=== PATIENT | male | born 1990 | race Caucasian/White ===

== ENCOUNTER 2016-08-31 16:50 | Emergency (ER) | payer SELFPAY ==
[~2016-08-31] VITALS: Ht 180.3 cm; Wt 81.6 kg
--- NOTE | 2016-08-31 17:38 | ED EENT ---
History of Present Illness General Chief Complaint: Eye Problems Stated Complaint: R EYE SWELLING/PAIN Nursing Triage Note: PT STATES EYELID SWELLING SINCE HE WOKE UP YESTERDAY. STATES IT IS HARD TO OPEN HIS EYE. Source: patient, family, spouse Exam Limitations: no limitations History of Present Illness Time seen by provider: 17:38 Initial Comments 26-year-old male patient presents to the emergency department with complaints of right eyelid swelling beginning yesterday morning when he awoke. Reports pain continues. Swelling is slightly improved today. Spouse reports patient has had some yellowish green drainage from the eye and matting this a.m. Timing/Duration: abrupt Location: eye (R) Prearrival Treatment: flushing eyes Modifying Factors: Worse With Other (worse with palpation) Allergies and Home Medications Allergies Coded Allergies: coconut (Verified Allergy, Unknown, 08/31/16) Home Medications Naproxen 500 Mg Tablet, 500 MG PO BID PRN for PAIN, #20 Ref 0 Prescribed by: ANU MOREJON on 08/31/161800 Sulfamethoxazole/Trimethoprim 1 Each Tablet, 1 EACH PO BID, #14 Ref 0 Prescribed by: ANU MOREJON on 08/31/161800 Review of Systems Constitutional: No dizziness, No fever, No malaise Eyes: See HPI, Denies Blurred Vision, Drainage, Denies Inflammation, Pain Ears: No Symptoms Reported Nose: denies congestion, denies pain, denies bloody discharge, denies clear discharge, denies purulent discharge, denies serosanguinous discharge Mouth: no symptoms reported Throat: no symptoms reported Respiratory: no symptoms reported Cardiovascular: no symptoms reported Musculoskeletal: No neck pain Skin: no symptoms reported Neurological: Headache, Denies Numbness, Denies Paresthesia, Denies Tingling, Denies Weakness All Other Systems Reviewed Negative Unless Noted: Yes (Negative excepted noted.) Past Bwgmigc-Cmejok-Qoikyi Hx Patient Social History Alcohol Use: Denies Use Recreational Drug Use: No (HX IV DRUG USE) Smoking Status: Current Everyday Smoker Recent Foreign Travel: No Contact w/Someone Who Travel: No Recent Infectious Disease Expo: No Recent Hopitalizations: No Seasonal Allergies Seasonal Allergies: No Surgeries HX Surgeries: Yes (KNIFE REMOVED FROM L HIP/BONE GRAFT. PLATE IN L WRIST) Surgeries: Orthopedic Respiratory Hx Respiratory Disorders: No Cardiovascular Hx Cardiac Disorders: No Neurological Hx Neurological Disorders: No Reproductive System Hx Reproductive Disorders: No Gastrointestinal Hx Gastrointestinal Disorders: Yes (HEP C) Gastrointestinal Disorders: Hepatitis Musculoskeletal Hx Musculoskeletal Disorders: Yes Musculoskeletal Disorders: Degenerate Disk Disease, Back Injury Endocrine Hx Endocrine Disorders: No HEENT HX ENT Disorders: No Cancer Hx Cancer: No Psychosocial Hx Psychiatric Problems: Yes Behavioral Health Disorders: PTSD, Bipolar Integumentary HX Skin/Integumentary Disorder: No Blood Transfusions Hx Blood Disorders: No Reviewed Nursing Assessment Reviewed/Agree w Nursing PMH: Yes Family Medical History Significant Family History: No Pertinent Family Hx Physical Exam Vital Signs Vital Sign - Last 12Hours 08/31/16 17:03 Temp 97.6 Pulse 114 Resp 18 B/P (MAP) 136/58 Pulse Ox 95 Eyes: right eye other (swelling of the right upper lid without evidence of erythema or warmth. Slight greenish yellow drainage noted from the eye.), right eye stye (right upper lid), left eye normal inspection, bilateral eye EOMI , bilateral eye PERRL Ears: bilateral ear TM normal, bilateral ear auricle normal, bilateral ear canal normal Nose: normal inspection Mouth/Throat: normal mouth inspection, pharynx normal Neck: supple, normal inspection, lymphadenopathy (R) (mild lymphadenopathy noted in the right anterior cervical lymph nodes), No lymphadenopathy (L) Cardiovascular: regular rate, rhythm, no murmur Respiratory: lungs clear, normal breath sounds, no respiratory distress Neurologic/Psychiatric: alert, normal mood/affect, oriented x 3 Skin: normal color, warm/dry Progress/Results/Core Measures Results/Orders My Orders Orders - ANU MOREJON Rx-Tramadol Hcl (Rx-Ultram) (08/31/16 17:55) Rx-Gentamicin Ophth Soln (Rx-Gentamicin (08/31/16 17:55) Rx-Trimeth/Sulfameth Ds Tab (Rx-Bactrim/ (08/31/16 17:55) Vital Signs/I&O Vital Sign - Last 12Hours 08/31/16 17:03 Temp 97.6 Pulse 114 Resp 18 B/P (MAP) 136/58 Pulse Ox 95 Blood Pressure Mean: 84 Departure Communication Progress Notes Patient seen and evaluated. Plan for discharge to home with and a mycin, tramadol, and Bactrim to go Packs Impression Impression: Primary Impression: Hordeolum internum of right upper eyelid Disposition: 01 HOME, SELF-CARE Condition: Improved Departure-Patient Inst. Decision time for Depature: 17:59 Referrals: NO,LOCAL PHYSICIAN (PCP) Primary Care Physician Patient Instructions: Adriano (Ignacio) Add. Discharge Instructions: All discharge instructions reviewed with patient and/or family. Voiced understanding. Medications as instructed. Tylenol extra strength over-the- counter as directed for pain. Warm compresses. Baby shampoo to cleanse the eye twice daily. Use a clean washcloth with each cleaning. Follow-up with your family practitioner of choice for recheck and to establish care. Return to the emergency department for worsened symptoms or any other concerns. Scripts Naproxen (Naprosyn) 500 Mg Tablet 500 MG PO BID Y for PAIN, #20 TAB 0 Refills Prov: ANU MOREJON 08/31/16 Sulfamethoxazole/Trimethoprim (Bactrim Ds Tablet) 1 Each Tablet 1 EACH PO BID, #14 TAB 0 Refills Prov: ANU MOREJON 08/31/16 Work/School Note: Local Medical Staff Listing ANU MOREJON Aug 31, 2016 17:38
[2016-08-31] MEDS ORDERED: RX-TRIMETH/SULFA. 160-800 MG (BACTRIM DS) TAB PPK#2 PO STA (17:55)
[2016-08-31] MEDS ORDERED: RX-TRAMADOL 50 MG (ULTRAM) TAB PPK#4 PO STA (17:55)
[2016-08-31] MEDS ORDERED: RX-GENTAMICIN SULFATE 0.3% OP 5 ML BTL OD STA (17:55)
[2016-08-31] MEDS ORDERED: NAPR500T PO (18:01)
[2016-08-31] MEDS ORDERED: SULF1TAB35 PO (18:01)
[2016-08-31 18:22] VITALS: BP 136/58
--- OUTSIDE RECORDS SUMMARY | 2016-10-05 06:04 | XMS REPORT ---
Author Author Alin Escoto Organization [employer] Address Unknown Phone Unavailable Care Team Providers Care Commissary Helper Name Role Phone Alin Escoto CP Unavailable Allergies No Known Allergies Problems Problem Type Condition ICD-9 Code Onset Dates Condition Status Problem Abdominal pain, epigastric 789.06 Active Problem Dysuria 788.1 Active Problem Unspecified disorder of the teeth and supporting structures 525.9 Active Problem Degeneration of intervertebral disc, site unspecified 722.6 Active Medications No Known Medications Results No Known Results Summary Purpose [employer] Submission
--- OUTSIDE RECORDS SUMMARY | 2016-10-05 06:04 | XMS REPORT ---
Author Author Denae Restrepo Organization [employer] Address Unknown Phone Unavailable Care Team Providers Care Visual Basic Developer Name Role Phone Denae Restrepo CP Unavailable Allergies No Known Allergies Problems [...]
--- OUTSIDE RECORDS SUMMARY | 2016-10-05 06:04 | XMS REPORT ---
Author Author Denae Restrepo Organization [employer] Address Unknown Phone Unavailable Care Team Providers Care Pump House Technician Name Role Phone Denae Restrepo CP Unavailable Allergies No Known Allergies Problems Problem Type Condition ICD-9 Code Onset Dates Condition Status Problem Degeneration of intervertebral disc, site unspecified 722.6 Active Assessment Degeneration of intervertebral disc, site unspecified 722.6 Active Problem Dysuria 788.1 Active Assessment Dysuria 788.1 Active Medications Medication Code System Code Instructions Start Date End Date Status Dosage Ibuprofen [facility] [address]-92 800 MG Orally Three times a day Apr 07, 2013 Jul 06, 2013 Active 1 tablet Tramadol HCl [facility] [address]-61 50 MG Orally every 6 hrs Apr 07, 2013 Jul 06, 2013 Active 1 tablet as needed Procedures Procedure Coding System Code Date N.GONORRHOEAE, DNA, AMP PROB CPT-4 95747 Apr 07, 2013 URINALYSIS, AUTO, W/O SCOPE CPT-4 61762 Apr 07, 2013 CHYLMD TRACH, DNA, AMP PROBE CPT-4 41242 Apr 07, 2013 Office Visit, New Pt., Level 3 CPT-4 76744 Apr 07, 2013 Vital Signs Date/Time: Apr 07, 2013 Weight 200.8 lbs Height 70.5 inches Blood Pressure Diastolic 78 mm Hg Blood Pressure Systolic 141 mm Hg Temperature 98.4 F Cardiac Monitoring Heart Rate 65 Beats per Minute Results Urinalysis (UA) (GM) PRO(- ) 1+ pH(- ) 6.0 BLO(- ) NEGATIVE SG(- ) >=1.030 KET(- ) NEGATIVE NIT(- ) NEGATIVE COLOR(- ) YELLOW URO(- ) 1.0 CLARITY(- ) CLEAR GLU(- ) NEGATIVE CARLA(- ) NEGATIVE MABEL(- ) NEGATIVE Summary Purpose [employer] Submission
--- OUTSIDE RECORDS SUMMARY | 2016-10-05 06:04 | XMS REPORT ---
Author Author Denae Restrepo Organization [employer] Address Unknown Phone Unavailable Care Team Providers Care Composition Floor Setter Name Role Phone Denae Restrepo CP Unavailable Allergies No Known Allergies Problems Problem Type Condition ICD-9 Code Onset Dates Condition Status Problem Degeneration of intervertebral disc, site unspecified 722.6 Active Assessment Degeneration of intervertebral disc, site unspecified 722.6 Active Problem Dysuria 788.1 Active Medications No Known Medications Vital Signs Date/Time: Jun 14, 2013 Weight 201 lbs Height 70.5 inches Blood Pressure Diastolic 74 mm Hg Blood Pressure Systolic 130 mm Hg Temperature 98.6 F Cardiac Monitoring Heart Rate 80 Beats per Minute Results No Known Results Summary Purpose [employer] Submission
--- OUTSIDE RECORDS SUMMARY | 2016-10-05 06:04 | XMS REPORT ---
Author Author Denae Restrepo Organization [employer] Address Unknown Phone Unavailable Care Team Providers Care Senior Web Services Developer Name Role Phone Denae Restrepo CP Unavailable Allergies No Known Allergies Problems Problem Type Condition ICD-9 Code Onset Dates Condition Status Problem Degeneration of intervertebral disc, site unspecified 722.6 Active Problem Dysuria 788.1 Active Medications No Known Medications Vital Signs Date/Time: Apr 07, 2013 Weight 200.8 lbs Height 70.5 inches Blood Pressure Diastolic 78 mm Hg Blood Pressure Systolic 141 mm Hg Temperature 98.4 F Cardiac Monitoring Heart Rate 65 Beats per Minute Results No Known Results Summary Purpose [employer] Submission
--- OUTSIDE RECORDS SUMMARY | 2016-10-05 06:04 | XMS REPORT ---
Author Author Alin Escoto Organization [employer] Address Unknown Phone Unavailable Care Team Providers Care Structural Fitter Name Role Phone Alin Escoto CP Unavailable [...]
--- OUTSIDE RECORDS SUMMARY | 2016-10-05 06:04 | XMS REPORT ---
Author Author Denae Restrepo Organization [employer] Address Unknown Phone Unavailable Care Team Providers Care Residence Leasing Agent Name Role Phone Denae Restrepo CP Unavailable Allergies No Known Allergies Problems Problem Type Condition ICD-9 Code Onset Dates Condition Status Problem Abdominal pain, epigastric 789.06 Active Problem Dysuria 788.1 Active Problem Unspecified disorder of the teeth and supporting structures 525.9 Active Problem Degeneration of intervertebral disc, site unspecified 722.6 Active Assessment Degeneration of intervertebral disc, site unspecified 722.6 Active Medications Medication Code System Code Instructions Start Date End Date Status Dosage Lyrica MEDISPAN [address]-41 50 MG Orally Three times a day December 12, 2013 Active 1 capsule Results No Known Results Summary Purpose [employer] Submission
--- OUTSIDE RECORDS SUMMARY | 2016-10-05 06:04 | XMS REPORT ---
Author Author Alin Escoto Organization [employer] Address Unknown Phone Unavailable Care Team Providers Care Fingerprint Classifier Name Role Phone Alin Escoto CP Unavailable [...] Start Date End Date Status Dosage Lyrica [facility] [address]-72 50 MG Orally Three times a day December 12, 2013 Active 1 capsule Omeprazole [facility] [address]-77 40 MG Orally Once a day Active 1 capsule Results No Known Results Summary Purpose [employer]Works Submission
--- OUTSIDE RECORDS SUMMARY | 2016-10-05 06:05 | XMS REPORT | Continuity of Care Document ---
Author Author [facility] Organization [facility] Address Unknown Phone Unavailable Allergies Active Description Code Type Severity Reaction Onset Reported/Identified Relationship to Patient Clinical Status Yes No Known Allergies Drug Allergy 09/05/2012 Yes No Known Drug Allergies Drug Allergy 09/05/2012 Yes No Known Food Allergies Food Allergy 09/05/2012 Yes No Known Allergies Drug Allergy N/A N/A 09/27/2013 Yes No Known Drug Allergies Drug Allergy N/A N/A 09/27/2013 Yes No Known Food Allergies Food Allergy N/A N/A 09/27/2013 Yes No Known Drug Allergies No Known Drug Allergies Drug Allergy Unknown ` 10/24/2013 Yes No Known Allergies NKMA N/A N/A 11/23/2013 Yes No Known Allergies No Known Allergies Drug Allergy Unknown N/A 02/13/2014 Medications Problems Date Dx Coded Attending Type Code Diagnosis Diagnosed By 09/05/2012 Maximiliano Beltre MD Final 305.1 TOBACCO USE DISORDER 09/05/2012 Maximiliano Beltre MD Final 338.19 ACUTE PAIN NEC 09/05/2012 Maximiliano Beltre MD Final 338.29 CHRONIC PAIN NEC 09/05/2012 Maximiliano Beltre MD Admitting 722.52 LUMBAR/LS DISC DEGEN 09/05/2012 Maximiliano Beltre MD Final 724.2 LUMBAGO 09/05/2012 Maximiliano Beltre MD Final 724.8 OTHER BACK SYMPTOMS 11/08/2012 Ron Garcia MD Final 305.1 TOBACCO USE DISORDER 11/08/2012 Ron Garcia MD 719.45 JOINT PAIN-PELVIS 11/08/2012 Ron Garcia MD Final 722.6 DISC DEGENERATION NOS 11/08/2012 Ron Garcia MD Final 923.21 CONTUSION OF WRIST 11/08/2012 Ron Garcia MD Final 924.01 CONTUSION OF HIP 11/08/2012 Ron Garcia MD Admitting 959.8 INJ MULT SITE/SITE NEC 11/08/2012 Ron Garcia MD External E849.0 HOME ACCIDENTS 11/08/2012 Ron Garcia MD External E880.9 FALL ON STAIR/STEP NEC 12/17/2012 Micah Lange MD Final 724.2 LUMBAGO 01/30/2013 Micah Lange MD Final 079.99 VIRAL INFECTION NOS 01/30/2013 Micah Lange MD Final 305.1 TOBACCO USE DISORDER 01/30/2013 Micah Lange MD Final 722.6 DISC DEGENERATION NOS 01/30/2013 Micah Lange MD Admitting 784.0 HEADACHE 03/05/2013 Micah Lange MD Final 305.1 TOBACCO USE DISORDER 03/05/2013 Micah Lange MD Final 722.6 DISC DEGENERATION NOS 03/05/2013 Micah Lange MD 723.1 CERVICALGIA 03/05/2013 Micah Lange MD Final 847.0 NECK SPRAIN 03/05/2013 Micah Lange MD Admitting 959.09 FACE NECK INJURY 03/05/2013 Micah Lange MD External E928.8 ACCIDENT NEC 05/28/2013 Micah Lange MD Admitting 724.2 LUMBAGO 05/28/2013 Micah Lange MD Final 724.3 SCIATICA 05/28/2013 Micah Lange MD Final 724.4 LUMBOSACRAL NEURITIS NOS 06/09/2013 Micah Lange MD Final 338.29 CHRONIC PAIN NEC 06/09/2013 Micah Lange MD Final 724.2 LUMBAGO 06/09/2013 Micah Lange MD Admitting 724.5 BACKACHE NOS 09/05/2013 Benjamin Zhao MD Final 305.1 TOBACCO USE DISORDER 09/05/2013 Benjamin Zhao MD Final 338.29 CHRONIC PAIN NEC 09/05/2013 Benjamin Zhao MD Final 530.81 ESOPHAGEAL REFLUX 09/05/2013 Benjamin Zhao MD Final 724.2 LUMBAGO 09/05/2013 Benjamin Zhao MD Final 787.01 NAUSEA W VOMITING 09/05/2013 Benjamin Zhao MD Final 789.01 RUQ ABDOMINAL PAIN 09/27/2013 Charlene Cox MD Final 787.01 NAUSEA W VOMITING 09/27/2013 Charlene Cox MD Final 789.06 EPIGASTRIC ABD PAIN 09/27/2013 Charlene Cox MD Final V64.1 NO PX/CONTRAINDICATION 05/22/2014 Maximiliano Beltre MD Final 305.1 TOBACCO USE DISORDER 05/22/2014 Maximiliano Beltre MD Final 706.2 SEBACEOUS CYST 05/22/2014 Maximiliano Beltre MD Reason 729.5 PAIN IN LIMB 02/27/2015 Alin Escoto DO Reason M25.512 Pain in left shoulder Procedures Code Description Performed By Performed On 86.59 CLOSURE SKIN SUBCUTANEOUS NEC Amadou Stockton DO L 06/20/2013 69351 UPPR GI ENDOSCOPY, DIAGNOSIS Charlene Cox MD 09/27/2013 Results Test Result Range METABOLIC PANEL, BASIC - 11/17/12 18:10 POTASSIUM 4.3 mmol/L 3.5-5.3 EST GFR (MDRD) > 60 mL/min > 59 ANION GAP 12 mmol/L 5-15 EST CrCl (CG) > 60 mL/min > 59 GLUCOSE 95 mg/dL 70-99 CALCIUM 9.6 mg/dL 8.5-10.1 BLOOD UREA NITROGEN 10 mg/dL 7-20 CREATININE 1.1 mg/dL 0.8-1.3 SODIUM 141 mmol/L 135-148 CHLORIDE 103 mmol/L 98-110 CARBON DIOXIDE 26 mmol/L 21-32 CBC W/DIFF - 03/12/13 15:15 EOSINOPHIL # 0.1 k/cumm 0.1-0.5 EOSINOPHIL % 1 % 2-4 GRANULOCYTE # 5.9 k/cumm 2.0-9.0 GRANULOCYTE % 64 % 50-75 LYMPHOCYTE # 2.4 k/cumm 1.0-4.0 LYMPHOCYTE % 26 % 20-30 MEAN CELL HGB 29.8 pg 27.0-33.0 MEAN CELL HGB CONCENTRATION 33.4 g/dL 32.0-37.0 MEAN CELL VOLUME 89.3 fl 80.0-100.0 MONOCYTE # 0.8 k/cumm 0.1-1.0 MONOCYTE % 9 % 4-6 RED BLOOD CELL 5.03 m/cumm 4.00-6.00 RED CELL DISTRIBUTION WIDTH 13.2 % 11.0- 15.6 WHITE BLOOD CELL 9.3 k/cumm 5.0-10.0 HEMOGLOBIN 15.0 gm/dL 14.0-18.0 HEMATOCRIT 44.9 % 40.0-54.0 PLATELET COUNT 279 k/cumm 150-400 URINALYSIS WITH MICROSCOPIC - 03/12/13 15:15 UA LEUKOCYTE ESTERASE DIPSTICK NEGATIVE NEGATIVE UA NITRITE DIPSTICK NEGATIVE NEGATIVE UA PROTEIN DIPSTICK 1+ NEGATIVE UA GLUCOSE DIPSTICK NEGATIVE NEGATIVE UA KETONE DIPSTICK NEGATIVE NEGATIVE UA UROBILINOGEN DIPSTICK NORMAL NORMAL UA BILIRUBIN DIPSTICK POSITIVE NEGATIVE UA BLOOD DIPSTICK NEGATIVE NEGATIVE UA CALCIUM OXALATE CRYSTALS PRESENT NEGATIVE UA MUCUS 3+ NEG TO 1+ UA VOLUME FOR EXAM 12.0 mL (12mL STD) UA SPECIFIC GRAVITY 1.030 1.015-1.025 UR PH 5.0 5.0-7.0 CHEM/HEM PROFILE-BEDSIDE - 03/12/13 15:26 POTASSIUM 4.4 mmol/L 3.5-5.3 METHOD Bedside ANION GAP 18 mmol/L 10-20 METHOD Bedside GLUCOSE 104 mg/dL 70-99 BLOOD UREA NITROGEN 16 mg/dL 7-20 CREATININE 1.0 mg/dL 0.8-1.3 HEMOGLOBIN 15.6 gm/dL 14.0-18.0 HEMATOCRIT 46.0 % 40.0-54.0 SODIUM 141 mmol/L 135-148 CHLORIDE 106 mmol/L 98-110 CARBON DIOXIDE 22 mmol/L 21-32 CALCIUM IONIZED 5.1 mg/dL 4.5-5.3 CBC W/DIFF - 10/24/13 14:00 EOSINOPHIL # 0.1 k/cumm 0.1-0.5 EOSINOPHIL % 1 % 2-4 GRANULOCYTE # 6.1 k/cumm 2.0-9.0 GRANULOCYTE % 72 % 50-75 LYMPHOCYTE # 1.7 k/cumm 1.0-4.0 LYMPHOCYTE % 20 % 20-30 MEAN CELL HGB 30.6 pg 27.0-33.0 MEAN CELL HGB CONCENTRATION 34.1 g/dL 32.0-37.0 MEAN CELL VOLUME 89.8 fl 80.0-100.0 MONOCYTE # 0.7 k/cumm 0.1-1.0 MONOCYTE % 8 % 4-6 RED BLOOD CELL 4.70 m/cumm 4.00-6.00 RED CELL DISTRIBUTION WIDTH 12.6 % 11.0- 15.6 WHITE BLOOD CELL 8.5 k/cumm 5.0-10.0 HEMOGLOBIN 14.4 gm/dL 14.0-18.0 HEMATOCRIT 42.2 % 40.0-54.0 PLATELET COUNT 227 k/cumm 150-400 ALCOHOL (ETHANOL) SERUM - 10/24/13 14:00 ALCOHOL (ETHANOL) SERUM < 10 mg/dL < 10 CHEM/HEM PROFILE-BEDSIDE - 10/24/13 14:14 POTASSIUM 4.1 mmol/L 3.5-5.3 METHOD Bedside ANION GAP 19 mmol/L 10-20 METHOD Bedside GLUCOSE 101 mg/dL 70-99 BLOOD UREA NITROGEN 8 mg/dL 7-20 CREATININE 1.0 mg/dL 0.8-1.3 HEMOGLOBIN 14.6 gm/dL 14.0-18.0 HEMATOCRIT 43.0 % 40.0-54.0 SODIUM 143 mmol/L 135-148 CHLORIDE 103 mmol/L 98-110 CARBON DIOXIDE 26 mmol/L 21-32 CALCIUM IONIZED 4.8 mg/dL 4.5-5.3 CBC W/MANUAL DIFF - 01/25/15 05:24 Microbiology URINALYSIS, ROUTINE - 10/24/13 14:20 UA LEUKOCYTE ESTERASE DIPSTICK NEGATIVE NEGATIVE UA NITRITE DIPSTICK NEGATIVE NEGATIVE UA PROTEIN DIPSTICK NEGATIVE NEGATIVE UA GLUCOSE DIPSTICK NEGATIVE NEGATIVE UA KETONE DIPSTICK NEGATIVE NEGATIVE UA UROBILINOGEN DIPSTICK NORMAL NORMAL UA BILIRUBIN DIPSTICK NEGATIVE NEGATIVE UA BLOOD DIPSTICK NEGATIVE NEGATIVE UA SPECIFIC GRAVITY 1.016 1.015-1.025 UR PH 7.0 5.0-7.0 UR DRUGS OF ABUSE SCREEN - 10/24/13 14:20 UR AMPHETAMINES SCREEN NEG (<1000 ng/mL) NEGATIVE UR BARBITURATE SCREEN POS (> 200 ng/mL) NEGATIVE DRUGS OF ABUSE SCREEN COMMENT UR OPIATES SCREEN POS (> 300 ng/mL) NEGATIVE UR PHENCYCLIDINE (PCP) SCREEN NEG (< 25 ng/mL) NEGATIVE UR CANNABINOIDS (THC) SCREEN POS (> 50 ng/mL) NEGATIVE UR COCAINE METABOLITE SCREEN NEG (< 300 ng/mL) NEGATIVE UR METHADONE SCREEN NEG (< 300 ng/mL) NEGATIVE UR BENZODIAZEPINE SCREEN NEG (< 200 ng/mL) NEGATIVE CBC W/DIFF - 03/05/14 19:18 COMMENT REVIEWED EOSINOPHIL # 0.2 k/cumm 0.1-0.5 EOSINOPHIL % 2 % 2-4 GRANULOCYTE # 5.1 k/cumm 2.0-9.0 GRANULOCYTE % 59 % 50-75 LYMPHOCYTE # 2.6 k/cumm 1.0-4.0 LYMPHOCYTE % 30 % 20-30 MEAN CELL HGB 30.1 pg 27.0-33.0 MEAN CELL HGB CONCENTRATION 33.0 g/dL 32.0-37.0 MEAN CELL VOLUME 91.3 fl 80.0-100.0 MONOCYTE # 0.7 k/cumm 0.1-1.0 MONOCYTE % 8 % 4-6 RED BLOOD CELL 4.38 m/cumm 4.00-6.00 RED CELL DISTRIBUTION WIDTH 12.2 % 11.0- 15.6 WHITE BLOOD CELL 8.6 k/cumm 5.0-10.0 HEMOGLOBIN 13.2 gm/dL 14.0-18.0 HEMATOCRIT 40.0 % 40.0-54.0 PLATELET COUNT 296 k/cumm 150-450 METABOLIC PANEL, COMPREHN - 03/05/14 19:18 POTASSIUM 4.0 mmol/L 3.5-5.3 EST GFR (MDRD) > 60 mL/min > 59 ANION GAP 7 mmol/L 5-15 EST CrCl (CG) > 60 mL/min > 59 GLUCOSE 102 mg/dL 70-99 CALCIUM 9.0 mg/dL 8.5-10.1 BLOOD UREA NITROGEN 13 mg/dL 7-20 CREATININE 1.0 mg/dL 0.8-1.3 SODIUM 142 mmol/L 135-148 CHLORIDE 104 mmol/L 98-110 AST/SGOT 6 Units/L 10-37 ALT/SGPT 20 Units/L < 66 CARBON DIOXIDE 31 mmol/L 21-32 TOTAL PROTEIN 7.4 gm/dL 6.4-8.2 ALBUMIN 3.6 gm/dL 3.4-5.0 BILI TOTAL 0.1 mg/dL 0.0-1.0 ALKALINE PHOSPHATASE TOTAL 106 IU/L 45- 117 AMYLASE - 03/05/14 19:18 AMYLASE 72 Units/L 25-115 LIPASE - 03/05/14 19:18 LIPASE 177 Units/L 73-393 CBC W/DIFF - 05/04/14 21:36 EOSINOPHIL # 0.2 k/cumm 0.1-0.5 EOSINOPHIL % 3 % 2-4 GRANULOCYTE # 4.5 k/cumm 2.0-9.0 GRANULOCYTE % 61 % 50-75 LYMPHOCYTE # 2.1 k/cumm 1.0-4.0 LYMPHOCYTE % 29 % 20-30 MEAN CELL HGB 29.9 pg 27.0-33.0 MEAN CELL HGB CONCENTRATION 34.1 g/dL 32.0-37.0 MEAN CELL VOLUME 87.5 fl 80.0-100.0 MONOCYTE # 0.5 k/cumm 0.1-1.0 MONOCYTE % 7 % 4-6 RED BLOOD CELL 4.79 m/cumm 4.00-6.00 RED CELL DISTRIBUTION WIDTH 12.9 % 11.0- 15.6 WHITE BLOOD CELL 7.3 k/cumm 5.0-10.0 HEMOGLOBIN 14.3 gm/dL 14.0-18.0 HEMATOCRIT 41.9 % 40.0-54.0 PLATELET COUNT 212 k/cumm 150-450 METABOLIC PANEL, COMPREHN - 05/04/14 21:36 POTASSIUM 3.7 mmol/L 3.5-5.3 EST GFR (MDRD) > 60 mL/min > 59 ANION GAP 11 mmol/L 5-15 GLUCOSE 124 mg/dL 70-99 CALCIUM 9.0 mg/dL 8.5-10.1 BLOOD UREA NITROGEN 14 mg/dL 7-20 CREATININE 1.2 mg/dL 0.8-1.3 SODIUM 144 mmol/L 135-148 CHLORIDE 103 mmol/L 98-110 AST/SGOT 11 Units/L 10-37 ALT/SGPT 23 Units/L < 66 CARBON DIOXIDE 30 mmol/L 21-32 TOTAL PROTEIN 8.1 gm/dL 6.4-8.2 ALBUMIN 4.2 gm/dL 3.4-5.0 BILI TOTAL 0.4 mg/dL 0.0-1.0 ALKALINE PHOSPHATASE TOTAL 113 IU/L 45- 117 URINALYSIS, ROUTINE - 05/04/14 21:50 UA LEUKOCYTE ESTERASE DIPSTICK NEGATIVE NEGATIVE UA NITRITE DIPSTICK NEGATIVE NEGATIVE UA PROTEIN DIPSTICK NEGATIVE NEGATIVE UA GLUCOSE DIPSTICK NEGATIVE NEGATIVE UA KETONE DIPSTICK NEGATIVE NEGATIVE UA UROBILINOGEN DIPSTICK NORMAL NORMAL UA BILIRUBIN DIPSTICK NEGATIVE NEGATIVE UA BLOOD DIPSTICK NEGATIVE NEGATIVE UA SPECIFIC GRAVITY 1.025 1.015-1.025 UR PH 6.0 5.0-7.0 Encounters ACCT No. Visit Date/Time Discharge Status Pt. Type Provider Facility Loc./Unit Complaint [id number] 09/27/2013 07:25:00 2013 23:59:59 CLS Outpatient Kenny KERR, Charlene Camara [facility] FO [id number] 09/05/2013 15:18:00 2013 15:24:00 DIS Outpatient Pavel KERR, Benjamin Tran [facility] F8SE [id number] 06/09/2013 11:51:00 2013 12:35:00 DIS Emergency Anisa KERR [facility] [id number] 05/28/2013 13:50:00 2013 14:48:00 DIS Emergency Anisa KERR [facility] [id number] 03/05/2013 13:01:00 2012 14:32:00 DIS Emergency Anisa KERR [facility] [id number] 01/30/2013 19:12:00 2012 22:38:00 DIS Emergency Anisa KERR [facility] [id number] 12/17/2012 12:43:00 2012 13:30:00 DIS Emergency Anisa KERR [facility] [id number] 11/08/2012 20:07:00 2012 21:35:00 DIS Emergency Ron Garcia MD [facility] [id number] 09/05/2012 15:11:00 2012 16:48:00 DIS Emergency Maximiliano Beltre MD [facility] [id number] 10/03/2013 14:54:00 Document Registration
--- OUTSIDE RECORDS SUMMARY | 2016-10-05 06:05 | XMS REPORT ---
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
--- OUTSIDE RECORDS SUMMARY | 2016-10-05 06:05 | XMS REPORT ---
Author Author Denae Restrepo Organization [employer] Address Unknown Phone Unavailable Care Team Providers Care Stained Glass Installer Name Role Phone Denae Restrepo CP Unavailable [...]
--- OUTSIDE RECORDS SUMMARY | 2016-10-05 06:05 | XMS REPORT ---
Author Author Denae Restrepo Organization [employer] Address Unknown Phone Unavailable Care Team Providers Care Drywall Application Supervisor Name Role Phone Denae Restrepo CP Unavailable [...]
--- OUTSIDE RECORDS SUMMARY | 2016-10-05 06:05 | XMS REPORT | Referral Summary ---
Author Author [facility] Organization [facility] Address Unknown Phone Unavailable Care Team Providers Care Lockstitch Sleeve Maker Name Role Phone [facility] PCP Unavailable Encounter [facility] [id number] Date(s): 02/22/15 - 02/22/15 [facility] [address], [place] [address] Final: Pain in left shoulder Discharge Disposition: 01-Home or Self Care Attending Physician: Alin Escoto DO Admitting Physician: Alin Escoto DO Vital Signs No data available for this section Problem List Condition Effective Dates Status Health Status Informant Acid Active patient reflux(Confirmed) Acute Active pain(Confirmed) Chronic back Active patient pain(Confirmed) Allergies, Adverse Reactions, Alerts No Known Allergies Medications Carafate 1 g/10 mL oral suspension 10 mL, Oral, QIDACHS, per protocol Dr Micah Lange, # 1,200 mL, 0 Refill(s) Start Date: 03/07/14 Status: Ordered CeleXA 20 mg oral tablet 1 tabs, Oral, Daily, # 30 tabs, 0 Refill(s), Indication: depression/anxiety Start Date: 01/20/14 Status: Ordered gabapentin Oral, 0 Refill(s) Start Date: 03/07/14 Status: Ordered Lyrica 50 mg oral capsule 1 caps, Oral, TID, # 60 caps, 0 Refill(s), Indication: pain Start Date: 01/20/14 Status: Ordered ondansetron 4 mg oral tablet 1 tabs, Oral, q6hr, Nausea or Vomiting, per protocol Dr Micah Lange, # 12 tabs , 0 Refill(s) Start Date: 03/07/14 Status: Ordered PriLOSEC 20 mg oral delayed release capsule 2 caps, Oral, Daily, # 60 caps, 0 Refill(s), Indication: GERD Start Date: 01/20/14 Status: Ordered traZODone 150 mg oral tablet 1 tabs, Oral, Bedtime (once a day), Insomnia, # 30 tabs, 0 Refill(s), Indication : insomnia Start Date: 01/20/14 Status: Ordered Zithromax Z-Daniel 250 mg oral tablet 1 packets, Oral, Once, as directed on package labeling, # 6 tabs, 0 Refill(s) Start Date: 02/28/14 Status: Ordered ZyPREXA 5 mg oral tablet 1 tabs, Oral, Bedtime (once a day), # 30 tabs, 0 Refill(s), Indication: mood stability Start Date: 01/20/14 Status: Ordered Results No data available for this section Immunizations Vaccine Date Refusal Reason pneumococcal 23-polyvalent vaccine 12/15/13 Patient Refuses Procedures Procedure Date Related Diagnosis Body Site Wrist repair Social History Social History Type Response Smoking Status Current every day smoker Assessment and Plan No data available for this section
--- OUTSIDE RECORDS SUMMARY | 2016-10-05 06:05 | XMS REPORT | Referral Summary ---
Author Author [facility] Organization [facility] Address Unknown Phone Unavailable Care Team Providers Care Mail Delivery Supervisor Name Role Phone [facility] PCP Unavailable Encounter [facility] [id number] Date(s): 02/22/15 - 02/22/15 [facility] [address], [place] [address] Discharge Disposition: 01-Home or Self Care Attending [...]
--- OUTSIDE RECORDS SUMMARY | 2016-10-05 06:05 | XMS REPORT ---
Author Author Alin Escoto Organization [employer] Address Unknown Phone Unavailable Care Team Providers Care Hydraulic Controls Technician Name Role Phone Alin Escoto CP Unavailable Allergies, Adverse Reactions, Alerts Substance Reaction Event Type N.K.D.A. Info Not Available Non Drug Allergy Problems Problem Type Condition ICD-9 Code Onset Dates Condition Status Problem Abdominal pain, epigastric 789.06 Active Problem Dysuria 788.1 Active Problem Unspecified disorder of the teeth and supporting structures 525.9 Active Problem Degeneration of intervertebral disc, site unspecified 722.6 Active Assessment Degeneration of intervertebral disc, site unspecified 722.6 Active Medications Medication Code System Code Instructions Start Date End Date Status Dosage Citalopram Hydrobromide [facility] [address]-84 20 MG Orally Once a day Active 1 tablet Lyrica [facility] [address]-60 50 MG Orally Three times a day December 12, 2013 Active 1 capsule Honobia [facility] [address]-42 7.5-325 MG Orally every 6 hrs/prn Mar 10, 2014 Active 1 tablet as needed Omeprazole [facility] [address]-41 40 MG Orally Once a day Active 1 capsule Procedures Procedure Coding System Code Date Office Visit, Est Pt., Level 3 CPT-4 73325 Mar 10, 2014 Vital Signs Date/Time: Mar 10, 2014 BMI 25.46 Index Weight 180.0 lbs Height 70.5 in Blood Pressure Diastolic 71 mm Hg Blood Pressure Systolic 107 mm Hg Temperature 97.9 F Cardiac Monitoring Heart Rate 76 /min Results No Known Results Summary Purpose [employer] Submission
--- OUTSIDE RECORDS SUMMARY | 2016-10-05 06:05 | XMS REPORT ---
Author Author Denae Restrepo Organization [employer] Address Unknown Phone Unavailable Care Team Providers Care Shellfish Harvester Name Role Phone Denae Restrepo CP Unavailable [...]
--- OUTSIDE RECORDS SUMMARY | 2016-10-05 06:05 | XMS REPORT ---
Author Author Denae Restrepo Organization [employer] Address Unknown Phone Unavailable Care Team Providers Care Interactive Producer Name Role Phone Denae Restrepo CP Unavailable [...] Instructions Start Date End Date Status Dosage Gabapentin MEDISPAN [address]-62 600 MG Orally Three times a day August Active 1 tablet Results No Known Results Summary Purpose [employer] Submission
--- OUTSIDE RECORDS SUMMARY | 2016-10-05 06:05 | XMS REPORT | Continuity of Care Document ---
Author Author [facility] Organization [facility] Address Unknown Phone Unavailable Support Name Relationship Address Phone LOPEZ TIRADO DO Caregiver [address] [place] [address] Unavailable LISHA KIANA Next Of Kin [address] [place], [place] [id number] Insurance Providers Guarantor Lopez Husain Address [address] [place] [id number] Email DENIED/NO TO PORT Payer Self Pay Subscriber's Name Lopez Husain Relationship 18 Self Chief Complaint and Reason for Visit Chief Complaint Lower Extremity Pain Reason for Visit [id number] Problems Past Problems Medical Problem Onset Date Ingrowing toenail with infection Unknown Medications Current Home Medications Medication Dose Units Route Directions Days Qty Instructions Start Date Ibuprofen 200 Mg Tablet 400 Mg Oral Every 4 Hours as needed for Pain 04/04/16 Sulfamethoxazole/Trimethoprim (Bactrim Ds Tablet) 1 Each Tablet 1 Tab Oral Twice A Day 7 Days 14 Tablet 04/04/16 Social History Social History Problem Response Recorded Date/Time Onset Date Status Chewing Tobacco Status No 04/04/2016 10:02pm Not Applicable Not Applicable Hx Substance Use No 04/04/2016 10:02pm Not Applicable Not Applicable Hx Alcohol Use No 04/04/2016 10:02pm Not Applicable Not Applicable Query Response Start Date Stop Date Smoking Status Current every day smoker Hospital Discharge Instructions No hospital discharge instructions. Plan of Care Discharge Date 04/04/16 10:24pm Disposition 01 DISCHARGED HOME, SELF-CARE Condition at Discharge Stable Instructions/Education Provided DI for Infected Ingrown Toenail Prescriptions See Medication Section Referrals [facility] Order Date: 1 Week Additional Instructions/Education Take the antibiotic as prescribed. Use ibuprofen, tylenol, and ice as needed for pain. Follow up with your doctor or [facility]. Care Plan and Goals Physician Care Plan Problem: Ingrowing toenail with infection Goal: Follow up with primary care provider Instructions: Take medications and follow care plan as discussed/written Functional Status No functional status results. Allergies, Adverse Reactions, Alerts No known allergies. Immunizations Query Response on File Recorded Date/Time Tdap Vaccine Hx UTD PER PT 04/04/16 10:04pm Vital Signs Acute Vital Signs Vital Response Date/Time Temperature (Fahrenheit) 97.9 deg F (96.8 - 99.1) 04/04/2016 10:24pm Temperature (Calculated Celsius) 36.68482 degrees C (36.0 - 37.3) 04/04/2016 10:24pm Pulse Rate (adult) 65 bpm (60 - 100) 04/04/2016 10:24pm Respiratory Rate 14 breaths/min (10 - 20) 04/04/2016 10:24pm O2 Sat by Pulse Oximetry 98 % (90 - 100) 04/04/2016 10:24pm Blood Pressure 123/65 mm Hg 04/04/2016 10:24pm Height (Feet) 5 feet 04/04/2016 9:13pm Height (Inches) 11.00 inches 04/04/2016 9:13pm Weight (Kilograms) 72.720 kg 04/04/2016 9:13pm Body Mass Index (BMI) 22.0 04/04/2016 9:13pm Results No known relevant diagnostic tests, laboratory data and/or discharge summary. Procedures No known history of procedures. Encounters Encounter Location Arrival/Admit Date Discharge/Depart Date Attending Provider Departed Emergency Room [facility] 04/04/16 8:51pm 04/04/16 10: 24pm LOPEZ TIRADO DO Recent Diagnosis
--- OUTSIDE RECORDS SUMMARY | 2016-10-05 06:05 | XMS REPORT ---
Author Author Alin Escoto Organization [employer] Address Unknown Phone Unavailable Care Team Providers Care Top Frame Fitter Name Role Phone Alin Escoto CP [...]
--- OUTSIDE RECORDS SUMMARY | 2016-10-05 06:05 | XMS REPORT ---
Author Author Denae Restrepo Organization [employer] Address Unknown Phone Unavailable Care Team Providers Care Porcelain Turner Name Role Phone Denae Restrepo CP Unavailable [...]
--- OUTSIDE RECORDS SUMMARY | 2016-10-05 06:05 | XMS REPORT ---
Author Author Denae Restrepo Organization [employer] Address Unknown Phone Unavailable Care Team Providers Care Candy Cutter Machine Name Role Phone Denae Restrepo CP Unavailable [...]
--- OUTSIDE RECORDS SUMMARY | 2016-10-05 06:06 | XMS REPORT ---
Author Author Denae Restrepo Organization [employer] Address Unknown Phone Unavailable Care Team Providers Care Behavioral Health Assistant Name Role Phone Denae Restrepo CP Unavailable [...]
--- OUTSIDE RECORDS SUMMARY | 2016-10-05 06:06 | XMS REPORT ---
Author Author Denae Restrepo Organization [employer] Address Unknown Phone Unavailable Care Team Providers Care Radiator Core Tester Name Role Phone Denae Restrepo CP Unavailable Allergies No Known Allergies Problems Problem Type Condition ICD-9 Code Onset Dates Condition Status Problem Degeneration of intervertebral disc, site unspecified 722.6 Active Problem Dysuria 788.1 Active Medications Medication Code System Code Instructions Start Date End Date Status Dosage Gabapentin [facility] [address]-75 300 MG Orally Three times a day Apr 19, 2013 Active 1 capsule Vital Signs Date/Time: Apr 07, 2013 Weight 200.8 lbs Height 70.5 inches Blood Pressure Diastolic 78 mm Hg Blood Pressure Systolic 141 mm Hg Temperature 98.4 F Cardiac Monitoring Heart Rate 65 Beats per Minute Results No Known Results Summary Purpose [employer] Submission
--- OUTSIDE RECORDS SUMMARY | 2016-10-05 06:06 | XMS REPORT ---
Author Author Denae Restrepo Organization [employer] Address Unknown Phone Unavailable Care Team Providers Care Waiter/Waitress Tourist Class Name Role Phone Denae Restrepo CP Unavailable [...]
--- OUTSIDE RECORDS SUMMARY | 2016-10-05 06:06 | XMS REPORT ---
Author Author Denae Restrepo Organization [employer] Address Unknown Phone Unavailable Care Team Providers Care Radio Announcer Name Role Phone Denae Restrepo CP Unavailable [...]
--- OUTSIDE RECORDS SUMMARY | 2016-10-05 06:06 | XMS REPORT ---
Author Author Denae Restrepo [employer] Address Unknown Phone Unavailable Care Team Providers Care Bullet Slugs Inspector Name Role Phone Denae Restrepo CP Unavailable Allergies, Adverse Reactions, Alerts Substance Reaction Event Type N.K.D.A. Info Not Available Non Drug Allergy Problems Problem Type Condition ICD-9 Code Onset Dates Condition Status Problem Abdominal pain, epigastric 789.06 Active Problem Dysuria 788.1 Active Problem Unspecified disorder of the teeth and supporting structures 525.9 Active Assessment Unspecified adverse effect of unspecified drug, medicinal and biological substance 995.20 Active Problem Degeneration of intervertebral disc, site unspecified 722.6 Active Assessment Degeneration of intervertebral disc, site unspecified 722.6 Active Medications Medication Code System Code Instructions Start Date End Date Status Dosage Reglan [facility] [address]-95 5 MG Orally Four times a day September 29, 2013 Active 1 tablet 30 minutes before meals and at bedtime as needed ChlorproMAZINE HCl [facility] [address]-01 50 MG Orally three a day Active 1 tablet Esperance [facility] [address]-12 5-325 MG Orally every 6 hrs Active 1to 2 tablet as needed Esperance [facility] [address]-98 7.5-325 MG Orally every 4-6 hrs November 14, 2013 December 14, 2013 Active 1 tablet as needed Gabapentin [facility] [address]-40 600 MG Orally Three times a day August Active 1 tablet Ibuprofen [facility] [address]-92 800 MG Orally Three times a day Active 1 tablet ChlorproMAZINE HCl [facility] [address]-10 25 MG Orally Three times a day November 14, 2013 Active 1 tablet Neurontin [facility] [address]-87 600 MG Orally Three times a day Active 1 tablet Flexeril [facility] [address]-10 10 MG Orally twice a day Active 1 tablet trazadone Unknown 0 50mg Active PRN Citalopram Hydrobromide [facility] [address]-77 20 MG Orally Once a day Active 1 tablet Carafate [facility] [address]-16 1 GM Orally Twice a day September 29, 2013 November 28, 2013 Active 1 tablet Omeprazole [facility] [address]-31 40 MG Orally Once a day Active 1 capsule Procedures Procedure Coding System Code Date Office Visit, Est Pt., Level 3 CPT-4 52220 November 14, 2013 Vital Signs Date/Time: November 14, 2013 Weight 199.0 lbs Height 70.5 in Blood Pressure Diastolic 75 mm Hg Blood Pressure Systolic 121 mm Hg Temperature 98.0 F Cardiac Monitoring Heart Rate 73 /min Results No Known Results Summary Purpose [employer] Submission
--- OUTSIDE RECORDS SUMMARY | 2016-10-05 06:06 | XMS REPORT ---
Author Author Lexy Munoz [facility] [employer] Address Unknown Phone Unavailable Care Team Providers Care Atm Technician Name Role Phone Lexy Munoz CP Unavailable Allergies, Adverse Reactions, Alerts Substance Reaction Event Type N.K.D.A. 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 Assessment Abnormal TSH R79.89 Active Assessment Generalized anxiety disorder F41.1 Active Medications Medication Code System Code Instructions Start Date End Date Status Dosage Citalopram Hydrobromide [facility] [address]-51 20 MG Orally Once a day Feb 21, 2016 1 tablet Trazodone HCl [facility] [address]-13 50 MG Orally Once a day Feb 21, 2016 1 tablet at bedtime Procedures Procedure Coding System Code Date OFFICE VISIT, STORES NAVAL-LOW COMPLEXITY (30 MIN.) CPT-4 51589 Feb 21, 2016 Vital Signs Date/Time: Feb 21, 2016 Temperature 98.4 F Height 72 in Weight 167.8 lbs Blood Pressure Diastolic 60 mm Hg Blood Pressure Systolic 112 mm Hg Cardiac Monitoring Heart Rate 88 /min BMI 22.76 Index Oximetry 96 % Respiratory Rate 16 /min Results No Known Results Summary Purpose [employer] Submission
--- OUTSIDE RECORDS SUMMARY | 2016-10-05 06:06 | XMS REPORT ---
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 Problem Generalized anxiety disorder F41.1 Active Assessment Abnormal TSH R79.89 Active Assessment Generalized anxiety disorder F41.1 Active Medications Medication Code System Code Instructions Start Date End Date Status Dosage Citalopram Hydrobromide [facility] [address]-50 20 MG Orally Once a day Feb 21, 2016 1 tablet Trazodone HCl [facility] [address]-64 50 MG Orally Once a day Feb 21, 2016 1 tablet at bedtime Procedures Procedure Coding System Code Date COMPREHENSIVE METABOLIC PANEL CPT-4 36967 Feb 22, 2016 TSH CPT-4 96399 Feb 22, 2016 COMPLETE CBC W/AUTO DIFF WBC CPT-4 11630 Feb 22, 2016 Results No Known Results Summary Purpose [employer] Submission
--- OUTSIDE RECORDS SUMMARY | 2016-10-05 06:06 | XMS REPORT ---
Author Author Denae Restrepo Organization [employer] Address Unknown Phone Unavailable Care Team Providers Care Corporate Development Associate Name Role Phone Denae Restrepo CP Unavailable Allergies No Known Allergies Problems Problem Type Condition ICD-9 Code Onset Dates Condition Status Problem Abdominal pain, epigastric 789.06 Active Problem Dysuria 788.1 Active Problem Unspecified disorder of the teeth and supporting structures 525.9 Active Problem Degeneration of intervertebral disc, site unspecified 722.6 Active Medications Medication Code System Code Instructions Start Date End Date Status Dosage Flexeril MEDISPAN [address]-85 10 MG Orally three times a day as needed for muscle spasm Feb 11, 2014 Active 1 tablet Results No Known Results Summary Purpose [employer] Submission
--- OUTSIDE RECORDS SUMMARY | 2016-10-05 06:06 | XMS REPORT ---
Author Author Alin Escoto Organization [employer] Address Unknown Phone Unavailable Care Team Providers Care Rn Baby Name Role Phone Alin Escoto CP Unavailable Allergies No Known Allergies Problems Problem Type Condition Code Onset Dates Condition Status Problem Abdominal pain, epigastric 789.06 Active Problem Dysuria 788.1 Active Problem Unspecified disorder of the teeth and supporting structures 525.9 Active Problem Degeneration of intervertebral disc, site unspecified 722.6 Active Medications Medication Code System Code Instructions Start Date End Date Status Dosage Ibuprofen [facility] [address]-43 800 MG Orally Three Times a Day as Needed Jun 12, 2015 September 10, 2015 One Tablet Results No Known Results Summary Purpose [employer] Submission
--- OUTSIDE RECORDS SUMMARY | 2016-10-05 06:06 | XMS REPORT ---
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
--- OUTSIDE RECORDS SUMMARY | 2016-10-05 06:06 | XMS REPORT ---
Author Author Alin Escoto Organization [employer] Address Unknown Phone Unavailable Care Team Providers Care Fur Feeder Name Role Phone Alin Escoto CP Unavailable Allergies, Adverse Reactions, Alerts Substance Reaction Event Type N.K.D.A. Info Not Available Non Drug Allergy Problems Problem Type Condition Code Onset Dates Condition Status Problem Abdominal pain, epigastric 789.06 Active Problem Dysuria 788.1 Active Problem Unspecified disorder of the teeth and supporting structures 525.9 Active Problem Degeneration of intervertebral disc, site unspecified 722.6 Active Assessment Other fatigue R53.83 Active Medications Medication Code System Code Instructions Start Date End Date Status Dosage Citalopram Hydrobromide [facility] [address]-19 20 MG Orally Once a day 1 tablet Gabapentin [facility] [address]-43 300 MG Orally Three times a day Feb 22, 2015 1 capsule Procedures Procedure Coding System Code Date COMPLETE CBC, AUTOMATED CPT-4 83956 Feb 22, 2015 HIV-1 AG W/HIV-1 & HIV-2 AB CPT-4 03816 Feb 22, 2015 ASSAY THYROID STIM HORMONE CPT-4 50377 Feb 22, 2015 Office Visit, Est Pt., Level 3 CPT-4 90441 Feb 22, 2015 COMPREHEN METABOLIC PANEL CPT-4 90417 Feb 22, 2015 Vital Signs Date/Time: Feb 22, 2015 BMI 31.98 Index Weight 166lbs 8oz lbs Height 60.5 in Blood Pressure Diastolic 76 mm Hg Blood Pressure Systolic 118 mm Hg Temperature 98.0 F Cardiac Monitoring Heart Rate 64 /min Results Name Result Date Reference Range Unit Abnormality Flag COMPREHENSIVE METABOLIC PANEL Summary Purpose [employer] Submission
--- OUTSIDE RECORDS SUMMARY | 2016-10-05 06:06 | XMS REPORT ---
Author Author Denae Restrepo Organization [employer] Address Unknown Phone Unavailable Care Team Providers Care Military Aircraft Designer Name Role Phone Denae Restrepo CP Unavailable Allergies No Known Allergies Problems Problem Type Condition ICD-9 Code Onset Dates Condition Status Problem Degeneration of intervertebral disc, site unspecified 722.6 Active Assessment Degeneration of intervertebral disc, site unspecified 722.6 Active Problem Dysuria 788.1 Active Medications Medication Code System Code Instructions Start Date End Date Status Dosage Gabapentin [facility] [address]-88 300 MG Orally Three times a day Apr 19, 2013 Active 1 capsule Ibuprofen [facility] [address]-24 800 MG Orally Three times a day Apr 07, 2013 Jul 06, 2013 Active 1 tablet Hydrocodone-Acetaminophen [facility] [address]-87 5-325 MG Orally every 6 hrs Jun 14, 2013 Jul 14, 2013 Active 1 tablet as needed Procedures Procedure Coding System Code Date THER/PROPH/DIAG INJ, SC/IM CPT-4 68993 Jun 14, 2013 Office Visit, Est Pt., Level 3 CPT-4 42207 Jun 14, 2013 Vital Signs Date/Time: Jun 14, 2013 Weight 201 lbs Height 70.5 inches Blood Pressure Diastolic 74 mm Hg Blood Pressure Systolic 130 mm Hg Temperature 98.6 F Cardiac Monitoring Heart Rate 80 Beats per Minute Results No Known Results Immunizations Vaccine Administration Date KETEROLAC/TORADOL 30 MG. Jun 14, 2013 KETEROLAC/TORADOL 30 MG. Jun 14, 2013 Summary Purpose [employer] Submission
--- OUTSIDE RECORDS SUMMARY | 2016-10-05 06:06 | XMS REPORT ---
Author Author Alin Escoto Organization [employer] Address Unknown Phone Unavailable Care Team Providers Care Biology Specialist Name Role Phone Alin Escoto CP Unavailable [...]
== END 2016-08-31 18:25 | disposition home or self-care (01) ==
LOC: ER 16:54
DX: H00.021 Hordeolum internum right upper eyelid (principal)
CPT/HCPCS: 99283

== ENCOUNTER 2017-03-04 17:25 | Emergency (ER) | payer SELFPAY ==
[~2017-03-04] VITALS: Ht 180.3 cm; Wt 81.6 kg
[~2017-03-04 17:25] MED LIST: NAPR500T PO; SULF1TAB35 PO
--- NOTE | 2017-03-04 17:41 | ED Upper Extremity ---
General Chief Complaint: Upper Extremity Stated Complaint: RT WRIST INJ Nursing Triage Note: patient reports getting R wrist stuck between washer and dryer Nursing Sepsis Screen: No Definite Risk Source: patient (AL AMEZCUA MD) History of Present Illness Time seen by provider: 17:38 Initial Comments The patient is a 27-year-old white male who was with the aid of a friend moving a washer and dryer on Thursday. His right wrist and forearm became impacted between the 2 appliances. He has continued to have pain. He was trying to work his way through this but dropped some windows at work causing them to break and his employer insisted that he come here for workup. Onset: other (Thursday) Pain/Injury Location: right forearm, right wrist Method of Injury: direct blow (AL AMEZCUA MD) Allergies and Home Medications Allergies Coded Allergies: coconut (Verified Allergy, Unknown, 08/31/16) Home Medications Naproxen 500 Mg Tablet, 500 MG PO BID PRN for PAIN, #20 Ref 0 Prescribed by: ANU MOREJON on 08/31/161800 Sulfamethoxazole/Trimethoprim 1 Each Tablet, 1 EACH PO BID, #14 Ref 0 Prescribed by: ANU MOREJON on 08/31/161 Constitutional: see HPI EENTM: no symptoms reported Respiratory: no symptoms reported Cardiovascular: no symptoms reported Gastrointestinal: no symptoms reported Genitourinary: no symptoms reported Musculoskeletal: see HPI Skin: no symptoms reported Psychiatric/Neurological: No Symptoms Reported (AL AMEZCUA MD) Past Jjjzmmn-Zixzbd-Fcaqlp Hx Patient Social History Alcohol Use: Denies Use Recreational Drug Use: No Smoking Status: Current Everyday Smoker Type Used: Cigarettes Recent Foreign Travel: No Contact w/Someone Who Travel: No Recent Infectious Disease Expo: No Recent Hopitalizations: No (AL AMEZCUA MD) Seasonal Allergies Seasonal Allergies: No (AL AMEZCUA MD) Surgeries History of Surgeries: Yes (KNIFE REMOVED FROM L HIP/BONE GRAFT. PLATE IN L WRIST) Surgeries: Orthopedic (AL AMEZCUA MD) Respiratory History of Respiratory Disorde: No (AL AMEZCUA MD) Cardiovascular History of Cardiac Disorders: No (AL AMEZCUA MD) Neurological History of Neurological Disord: No (AL AMEZCUA MD) Reproductive System Hx Reproductive Disorders: No (AL AMEZCUA MD) Gastrointestinal History of Gastrointestinal Di: Yes (HEP C) Gastrointestinal Disorders: Hepatitis (AL AMEZCUA MD) Musculoskeletal History of Musculoskeletal Dis: Yes Musculoskeletal Disorders: Degenerate Disk Disease, Back Injury (AL AMEZCUA MD) Endocrine History of Endocrine Disorders: No (AL AMEZCUA MD) Cancer History of Cancer: No (AL AMEZCUA MD) Psychosocial History of Psychiatric Problem: Yes Behavioral Health Disorders: PTSD, Bipolar (AL AMEZCUA MD) Integumentary History of Skin or Integumenta: No (AL AMEZCUA MD) Blood Transfusions History of Blood Disorders: No (AL AMEZCUA MD) Family Medical History Significant Family History: No Pertinent Family Hx (AL AMEZCUA MD) Physical Exam Vital Signs Vital Sign - Last 12Hours 03/04/17 17:30 Pulse 84 Resp 18 B/P (MAP) 128/77 Pulse Ox 99 (ANILA ESCAMILLA MD) Vital Signs Capillary Refill : Less Than 3 Seconds (AL AMEZCUA MD) General Appearance: WD/WN, no apparent distress HEENT: normal ENT inspection Neck: full range of motion Respiratory: chest non-tender, lungs clear, normal breath sounds, no respiratory distress, no accessory muscle use Neurologic/Psychiatric: supervisor display fabrication II-XII nml as tested, no motor/sensory deficits, alert, normal mood/affect, oriented x 3 Comments The patient exhibited today one plus or less line installer repairer on the right and a 2+ on the left. No swelling or discoloration is noted. No deformity is noted. There is pain to passive range of motion of the wrist. (AL AMEZCUA MD) Progress/Results/Core Measures Results/Orders My Orders Orders - ANILA ESCAMILLA MD Hand, Right, 3 Views (03/04/17 18:34) (ANILA ESCAMILLA MD) Vital Signs/I&O Vital Sign - Last 12Hours 03/04/17 17:30 Pulse 84 Resp 18 B/P (MAP) 128/77 Pulse Ox 99 (ANILA ESCAMILLA MD) Blood Pressure Mean: 94 Progress Note : Time: 18:34 Progress Note Care of this patient was assumed from Dr. Amezcua at 18:00. X-rays reviewed by me and reports reviewed. No bony injuries were identified. On reexamination of the patient, he confirms history is provided to Dr. Amezcua. However, on my exam he also has tenderness up through the fourth and fifth metacarpals and into the fifth finger. This area was not completely captured on the wrist x- ray. X-rays of the hand were added to the workup. Range of motion in the hand and line installer repairer were intact. Capillary refill is normal in all of the fingers. Radial pulses normal. Sensation intact in all fingers. (ANILA ESCAMILLA MD) Diagnostic Imaging Diagonstic Imaging: Xray Plain Films/CT/US/NM/MRI: forearm Comments Forearm x-ray viewed by me and report reviewed. See report below: [id number] PT STATUS: REG ER : 1990 PHYSICIAN: AL AMEZCUA MD ADMIT DATE: 03/04/17/ER Signed Date of Exam: 03/04/17 FOREARM, RIGHT, 2 VIEWS INDICATION: Got arm stuck between washer and dryer, wrist pain. FINDINGS: Two views of the right forearm demonstrate normal ossification. No fracture or dislocation is present. IMPRESSION: Normal right forearm. Dictated by: Dictated on workstation # [id number] Dict: 03/04/171755 Trans: 03/04/171810 Interpreted by: GHISLAINE ARIAS MD Electronically signed by: GHISLAINE ARIAS MD 03/04/171810 Diagonstic Imaging: Xray Plain Films/CT/US/NM/MRI: other (wrist) Comments Wrist x-ray viewed by me and report reviewed. See report below: [facility] [id number] PT STATUS: REG ER : 1990 PHYSICIAN: AL AMEZCUA MD ADMIT DATE: 03/04/17/ER Signed Date of Exam: 03/04/17 WRIST, RIGHT, 3 VIEWS OR MORE INDICATION: Got arm stuck between a washer and a dryer, right wrist pain. COMPARISON STUDIES: Right forearm from today. FINDINGS: Three views of the right wrist demonstrates normal ossification no fracture or dislocation is present. IMPRESSION: Normal right wrist. Dictated by: Dictated on workstation # [id number] Dict: 03/04/171753 Trans: 03/04/171810 Interpreted by: GHISLAINE ARIAS MD Electronically signed by: GHISLAINE ARIAS MD 03/04/171810 Diagonstic Imaging: Xray Plain Films/CT/US/NM/MRI: hand Comments Hand x-ray viewed by me and report reviewed. See report below: NAME: [facility] REC#: [id number] PT STATUS: REG ER : 1990 PHYSICIAN: ANILA ESCAMILLA MD ADMIT DATE: 03/04/17/ER Signed Date of Exam: 03/04/17 HAND, RIGHT, 3 VIEWS INDICATION: Got arm stuck between the washer and dryer, pain in the wrist and into the fingers. FINDINGS: Three views of the right hand demonstrate normal ossification. No acute fractures are present. There is an old healed fracture of the fifth metacarpal. IMPRESSION: There are no acute findings. Dictated by: Dictated on workstation # [id number] Dict: 03/04/171899 Trans: 03/04/171904 Interpreted by: GHISLAINE ARIAS MD Electronically signed by: GHISLAINE ARIAS MD 03/04/171904 (ANILA ESCAMILLA MD) Departure Impression Impression: Primary Impression: Crushing injury of right wrist Qualified Codes: S67.31XA - Crushing injury of right wrist, initial encounter Disposition: HOME, SELF-CARE Condition: Improved Departure-Patient Inst. Referrals: NO,LOCAL PHYSICIAN (PCP/Family) Primary Care Physician Patient Instructions: Common Wrist Injuries Add. Discharge Instructions: You may take ibuprofen up to 800 mg every 8 hours as needed for pain. Add Tylenol (acetaminophen) up to 1000 mg every 6 hours as needed for additional pain relief. Rest, elevation, and icing in 20 minute intervals may also be helpful. A wrist brace purchased [id number] may also be helpful in adding support and strength. Follow-up with your primary care provider in a few days if not improving as expected. All discharge instructions reviewed with patient and/or family. Voiced understanding. Work/School Note: Work Release Form Date Seen in the Emergency Department: Mar 04, 2017 Return to Work: Mar 05, 2017 Restrictions: No Restrictions Other Restrictions Listed Below: Advance level of activity as pain allows. Wrist brace recommended AL AMEZCUA MD Mar 04, 2017 17:41 ANILA ESCAMILLA MD Mar 04, 2017 18:29
--- NOTE | 2017-03-04 17:59 | Diagnostic Imaging Report ---
INDICATION: Got arm stuck between a washer and a dryer, right wrist pain. COMPARISON STUDIES: Right forearm from today. FINDINGS: Three views of the right wrist demonstrates normal ossification no fracture or dislocation is present. IMPRESSION: Normal right wrist. Dictated by: Dictated on workstation # [id number]
--- NOTE | 2017-03-04 18:01 | Diagnostic Imaging Report ---
INDICATION: Got arm stuck between washer and dryer, wrist pain. FINDINGS: Two views of the right forearm demonstrate normal ossification. No fracture or dislocation is present. IMPRESSION: Normal right forearm. Dictated by: Dictated on workstation # [id number]
--- NOTE | 2017-03-04 19:05 | Diagnostic Imaging Report ---
INDICATION: Got arm stuck between the washer and dryer, pain in the wrist and into the fingers. FINDINGS: Three views of the right hand demonstrate normal ossification. No acute fractures are present. There is an old healed fracture of the fifth metacarpal. IMPRESSION: There are no acute findings. Dictated by: Dictated on workstation # [id number]
[2017-03-04 19:48] VITALS: BP 128/77
== END 2017-03-04 19:48 | disposition home or self-care (01) ==
LOC: EDUNIT# 17:25 → ER 17:27
DX: S67.31XA Crushing injury of right wrist, initial encounter (principal); M47.9 Spondylosis, unspecified; F43.10 Post-traumatic stress disorder, unspecified; F31.9 Bipolar disorder, unspecified; Z96.7 Presence of other bone and tendon implants; Z87.19 Personal history of other diseases of the digestive system; Z87.828 Personal history of other (healed) physical injury and trauma; W29.2XXA Contact with other powered household machinery, initial encounter
CPT/HCPCS: 73090; 73110; 73130; 99282

== ENCOUNTER 2022-10-27 07:36 | Emergency (ER) | payer SELFPAY ==
[~2022-10-27] VITALS: Ht 180 cm; Wt 84.0 kg
[~2022-10-27 07:36] MED LIST changes: +NAPR-1071 PO; -NAPR500T PO; -SULF1TAB35 PO; +SULF1TAB38 PO
--- NOTE | 2022-10-27 09:31 | ED Back Pain ---
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 NOT SURE IF HE HURT IT AT WORK Source of Information: Patient Exam Limitations: No Limitations History of Present Illness Date Seen by Provider: Oct 27, 2022 Time Seen by Provider: 08:29 Initial Comments This 32-year-old gentleman presents to the emergency room with complaints of pain that extends from his left lower neck region all the way down through his lower back and toward the left hip. It does not seem to involve the left hip specifically. Pain sometimes radiates down to his left wrist into the first through third fingers. This pain has been noted for about the last 3 weeks. He takes Tylenol and ibuprofen and has applied heat but has not noted any significant improvement. He denies any injury. He works in nursing care and helps transfer patients. He has not yet been seen for these issues. He denies any prior episodes. He has no bowel or bladder dysfunction. He denies groin numbness. He has no weakness of the lower extremities. Allergies and Home Medications Allergies Coded Allergies: coconut (Verified Allergy, Unknown, 08/31/16) Patient Home Medication List Home Medication List Reviewed: Yes Cyclobenzaprine HCl (Cyclobenzaprine HCl) 10 Mg Tablet, 10 MG PO HS PRN for SPASMS Prescribed by: ANILA MICHELLE on 10/27/22 0933 Hydrocodone/Acetaminophen (Hydrocodone-Acetamin 5-325 mg) 5 Mg-325 Mg Tablet, 1 TAB PO Q4H PRN for PAIN-BREAKTHROUGH Prescribed by: ANILA MICHELLE on 10/27/22 0936 Naproxen (Naprosyn) 500 Mg Tablet, 500 MG PO BID PRN for PAIN Prescribed by: ANU MOREJON on 08/31/16 180 Prednisone (Prednisone) 20 Mg Tab, 40 MG PO DAILY Prescribed by: ANILA MICHELLE on 10/27/22 0933 Sulfamethoxazole/Trimethoprim (Bactrim Ds Tablet) 1 Each Tablet, 1 EACH PO BID Prescribed by: ANU MOREJON on 08/31/16 180 Review of Systems Constitutional: no symptoms reported EENTM: no symptoms reported Respiratory: no symptoms reported Cardiovascular: no symptoms reported Gastrointestinal: no symptoms reported Genitourinary: no symptoms reported Musculoskeletal: see HPI Skin: no symptoms reported Psychiatric/Neurological: See HPI Past Pgticky-Bpivdq-Jfgfuz Hx Patient Social History Tobacco Use?: Yes Tobacco type used: Cigarettes Smoking Status: Current Everyday Smoker Smokeless Tobacco Frequency: Current Everyday User Substance use?: No Alcohol Use?: No Immunizations Up To Date First/Initial COVID19 Vaccinat: NO Seasonal Allergies Seasonal Allergies: No Past Medical History Surgery/Hospitalization HX: BONE GRAFT TO LT WRIST FROM LT HIP, "L 4-5 DISK," Surgeries: Yes (KNIFE REMOVED FROM L HIP/BONE GRAFT. PLATE IN L WRIST) Orthopedic (Bone graft from hip to left wrist) Respiratory: No Cardiac: No Neurological: No Reproductive Disorders: No Gastrointestinal: Yes (HEP C) Hepatitis Musculoskeletal: Yes Degenerate Disk Disease (L4-L5 disc disease), Back Injury Endocrine: No HEENT: No Cancer: No Psychosocial: Yes PTSD, Bipolar Integumentary: No Blood Disorders: No Family Medical History No Pertinent Family Hx Physical Exam Vital Signs Vital Signs - First Documented 10/27/22 07:42 Temp 36.4 Pulse 79 Resp 18 B/P (MAP) 140/88 (105) Pulse Ox 100 O2 Delivery Room Air Capillary Refill : Less Than 3 Seconds Height, Weight, BMI Height: 5'11.00" Weight: 180lbs. oz. 81.185406mv; 25.00 BMI Method:Stated General Appearance: No Apparent Distress HEENT: PERRL/EOMI, Normal ENT Inspection Neck: Normal Inspection, Other (Tenderness in the paraspinous region of the trapezius muscles and other paraspinous muscles) Cardiovascular: Regular Rate, Rhythm, No Edema, No Gallop, No Murmur Respiratory: Lungs Clear, Normal Breath Sounds, No Accessory Muscle Use Gastrointestinal: Non Tender, Soft Back: Normal Inspection, Other (Tenderness in the left paravertebral region intermittently throughout the back) Extremity: Normal Inspection, Non Tender, No Pedal Edema, Other (No pain with rotation of the left hip or palpation of the left hip) Neurologic/Psychiatric: Alert, Oriented x3, No Motor/Sensory Deficits, Normal Mood/Affect, nursing specialist II-XII Norm as Tested Skin: Normal Color, Warm/Dry Progress/Results/Core Measures Results/Orders Vital Signs/I&O 10/27/22 10/27/22 07:42 09:42 Temp 36.4 36.4 Pulse 79 79 Resp 18 18 B/P (MAP) 140/88 (105) 140/88 Pulse Ox 100 100 O2 Delivery Room Air Room Air Blood Pressure Mean: 105 Progress Progress Note : Progress Note Patient had no detectable neurologic compromise on exam. His symptoms may simply be musculoskeletal strain in nature. However, he may also have some o ther type of spinal disease causing radicular type symptoms. Since eqcs-gbu-iovqdel medications have not been particularly helpful, we will try a course of steroids. He is also being prescribed a small quantity of hydrocodone and cyclobenzaprine to help hold him over until the steroids take effect. We had a long discussion about how to proceed with work-up in the primary care [facility]. He was advised to establish [place] [facility] and to get enrolled in the financial reporting director program through the hospital given his present lack of insurance. See discharge instructions for further discussion. Note for work was also provided. No further work-up was required in the emergency room. Departure Impression Primary Impression: Neck pain on left side Additional Impressions: Left low back pain Qualified Codes: M54.50 - Low back pain, unspecified Upper back pain on left side Disposition: 01 HOME, SELF-CARE Condition: Stable Departure-Patient Inst. Decision time for Depature: 09:25 Referrals: NO,LOCAL PHYSICIAN (PCP/Family) Primary Care Physician Patient Instructions: Low Back Pain ED, Radiculopathy, Upper Back Pain ED Add. Discharge Instructions: The exact cause of your pain is uncertain. You may be experiencing simple musculoskeletal strain. However, you may have pathology in your neck such as nerve impingement, disc bulging, or other spinal impingement. Close follow-up in the clinic is recommended. Please establish at the [facility] as soon as possible. You may contact them at [phone]. When calling, please explain that this is a follow-up on an ER visit and that prompt follow-up is recommended. If your symptoms do not resolve after treatment with steroids, you may need additional therapies and/or work-up such as physical therapy, MRI of your spine, etc. For primary pain control use ibuprofen up to 600 mg every 6 hours as needed. Add Tylenol (acetaminophen) up to 1000 mg every 6 hours as needed. If taking hydrocodone, please be aware that hydrocodone contains 325 mg of Tylenol (acetaminophen) in each tablet. You should not exceed 1000 mg of acetaminophen every 6 hours or 4000 mg/day. Drink plenty of clear liquids to stay well-hydrated. Gentle heat on your tense muscles may be helpful. Gentle stretching may also be helpful. You may take your cyclobenzaprine muscle relaxer at bedtime to help tense muscles relax. Be cautious when using hydrocodone and cyclobenzaprine. These medications may cause drowsiness. You should not drive, operate machinery, or make important decisions while on these medications. Additionally, hydrocodone may cause constipation, so you may wish to use a stool softener such as Colace while on hydrocodone. You may consider alternative therapies as well such as chiropractics or massage. Return to the emergency room promptly if you develop more severe neurologic deficits such as notable weakness of an arm or leg, problems controlling bowel or bladder, difficulty walking due to weakness or discoordination in your legs, or numbness in your groin. Also return if you have escalating pain that is not controlled by these medications. You are being prescribed prednisone. This is a steroid that can cause sleep disturbance. Take early in the day to avoid sleep disturbance. Take with food or milk to avoid stomach upset. You are encouraged to complete the financial reporting director application for the hospital as well. All discharge instructions reviewed with patient and/or family. Voiced understanding. Scripts Hydrocodone/Acetaminophen (Hydrocodone-Acetamin 5-325 mg) 5 Mg-325 Mg Tablet 1 TAB PO Q4H PRN for PAIN-BREAKTHROUGH, #10 TAB Prov: ANILA ESCAMILLA MD 10/27/22 Prednisone (Prednisone) 20 Mg Tab 40 MG PO DAILY, #10 TAB 0 Refills Prov: ANILA ESCAMILLA MD 10/27/22 Cyclobenzaprine HCl (Cyclobenzaprine HCl) 10 Mg Tablet 10 MG PO HS PRN for SPASMS, #10 TAB 0 Refills Prov: ANILA ESCAMILLA MD 10/27/22 Work/School Note: Work Release Form Date Seen in the Emergency Department: Oct 27, 2022 Return to Work: Oct 29, 2022 ANILA ESCAMILLA MD Oct 27, 2022 09:31
[2022-10-27] MEDS ORDERED: PRD20T PO (09:33)
[2022-10-27] MEDS ORDERED: CYCL10TA25 PO (09:33)
[2022-10-27] MEDS ORDERED: ACHD5005 PO (09:33)
[2022-10-27 09:42] VITALS: BP 140/88
== END 2022-10-27 09:42 | disposition home or self-care (01) ==
LOC: EDUNIT# 07:36 → ER 07:39
DX: M54.2 Cervicalgia (principal); M54.50 Low back pain, unspecified; M54.6 Pain in thoracic spine; F17.210 Nicotine dependence, cigarettes, uncomplicated; Z28.310 Unvaccinated for COVID-19
CPT/HCPCS: 99281